=== PATIENT | male | born 1945 | race Caucasian/White ===

== ENCOUNTER → 2020-03-02 10:28 | Outpatient (CLI) | payer MEDICARE, OTHER, SELFPAY | PROVIDERS: PCP Student in an Organized Health Care Education/Training Program; Referring Provider Student in an Organized Health Care Education/Training Program; Visit Provider Family Medicine | DX: L02.415 Cutaneous abscess of right lower limb (principal); L03.115 Cellulitis of right lower limb; L40.50 Arthropathic psoriasis, unspecified | CPT/HCPCS: 99203; 99213 ==

== ENCOUNTER 2020-03-02 14:32 | Inpatient (IN) | payer MEDICARE, OTHER, SELFPAY ==
[2020-03-02 14:56] VITALS: BP 179/101; PULSE 84; RESP 16; O2SAT 97
[2020-03-02 15:11] VITALS: BMI 36.6
[2020-03-02 15:58] LABS: COVID19 -Nasal RAPID Negative (Negative)
--- NOTE | 2020-03-02 16:09 | PM.HP.1 ---
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 Some years ago he had a right knee replacement moved chew resulted in chronic swelling in his right leg. He underwent a cardiac workup that was negative for cause. He was advised to wear compression hose. He subsequently has developed 2 infections which were MRSA in the region. He has now developed a 3rd this when coming up recently. It became red tender and draining. He was seen in the wound clinic and referred to me for surgical treatment of the infection. No cultures have been done to his knowledge. It has become increasingly red and increasingly tender with time. Even touching it now is quite painful. The patient says that the wound care doctor had sprayed with lidocaine and probe the wound which was quite tender for him. Patient History Medical History (Updated 03/02/20 @ 16:28 by Finn Royal MD) History of benign schwannoma (Acute) MRSA infection greater than 3 months ago (Acute) Nerve root injury (Acute) Surgical History (Updated 03/02/20 @ 16:30 by Finn Royal MD) H/O Spinal surgery (Acute) Status post right knee replacement (Acute) Family & Social History Family History Father No problems noted. Social History: household members spouse Prior Living Arrangements House Safety & Behavioral: Feels Safe in Current Yes Environment Been Physically Hurt or No Threatened By a Person Suicidal Ideation Description None Suicide Plan Description No Plan Tobacco & Substance use: Smoking Status Never smoker alcohol intake current alcohol intake frequency 0-2 drinks per day Substance Use Type does not use Meds Home Medications and Allergies Home Medications Medication Instructions Recorded Confirmed Type atorvastatin 20 mg tablet 20 mg PO DAILY 03/02/20 03/02/20 History gabapentin 300 mg capsule 300 mg PO BEDTIME 03/02/20 03/02/20 History losartan 25 mg tablet 25 mg PO DAILY 03/02/20 03/02/20 History mupirocin 2 % topical ointment 1 applictn TOP BID 03/02/20 03/02/20 History naproxen sodium 220 mg capsule 220 mg PO BID PRN 03/02/20 03/02/20 History omega-3 fatty acids 1,000 mg 1,000 mg PO DAILY 03/02/20 03/02/20 History capsule Allergies Allergy/AdvReac Type Severity Reaction Status Date / Time No Known Drug Allergies Allergy Unverified 03/02/20 14:16 Review of Systems Review of Systems Narrative: Denies fever chills night sweats. No weight loss. No itching lesions on the skin. The only open new sore is the 1 with the present infection. No headaches double vision pain is eyes earache sore throats or trouble swallowing. No cough cold or asthma. No chest pain or prior heart attacks. Does have hypertension controlled with medication. Denies any diarrhea constipation black or bloody bowel movements. Has had a screening colonoscopy. No burning when he urinates blood in his urine or kidney stones in the past. He does have some chronic joint pain in his knees and neck. 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 Has numbness in his left hand as well from the same problem. No seizures or blackouts. No anxiety or depression. No problems with this thyroid pancreas he is aware of. No unusual bruising or bleeding. Pain in his right leg is 7/10 at the time he was seen. Last p.o. intake was at noon. Exam Vital Signs (past 8 hours): - 03/02/20 14:56 Pulse Rate 84 Respiratory Rate 16 Blood Pressure 179/101 H Pulse Oximetry 97 Oxygen Flow Rate 0 Narrative Exam Narrative: Patient has a large bony bump right posterior scalp that he states has been present since he was an . Nontender. He has a vertical scar all over his lying his cervical spine in the midline. Head he shaves his head. His eyes are nonicteric. Pupils equal round reactive to light. Conjunctiva pink. Oral mucosa pink moist without open lesions. Teeth are intact. Nasal septum is midline. No polyps seen. His ears are without lesion. There are no palpable nodes or masses in the neck or supraclavicular areas. Trachea is midline mobile. Thyroid is not enlarged. Lungs are clear to auscultation without rales or rhonchi in equal percussion. Heart regular rate and rhythm he has a soft 1 to 2/6 systolic murmur heard best at the base without radiation into the neck. No bruit in the neck. No heave lift or thrill. His abdomen is protuberant soft nontender there are no palpable masses. No hernias of the abdominal wall are noted. Patient is legs are asymmetric. The right ankle is chronically swollen misshapen. There is darkening of the tissues and a hollowed out area where prior infection has been right distal leg medially. Posteriorly there is extensive cellulitis and a centrally necrosed draining site in the middle of that cellulitis. The area is quite tender to touch. Patient has pulses are 2+ dorsalis pedis and tibialis posterior. Other than the changes in the lower right extremity patient has a scar over his right knee from a knee replacement. I do not see any deformity otherwise in either leg. His left hand is misshapen with some loss of muscle mass and contracture mild. Left hand is normal. The patient is alert and oriented x3. Speech rate and content are appropriate. Affect is appropriate. Objective Labs Labs: Laboratory Results - last 24 hr 03/02/20 14:30 COVID-19 PCR Negative Assessment & Plan Assessment & Plan narrative: Chronic hypertension. Will continue to give meds. 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 Will continue the use of gabapentin Elevated cholesterol will continue the use of atovastin. Right leg cellulitis with abscess most likely MRSA given its appearance. Will isolate the patient until cultures are back. Cultures have been ordered. Will begin vancomycin as well as Ancef to cover broad-spectrum of skin julissa. Will require operative debridement. There are several emergencies already on the books. The patient ate lunch at noon. The earliest this can probably be done is around 8:00 p.m.. Will leave that to did the discretion of the stock and station agent physician. Quality VTE Deep Vein Thrombosis/Pulmonary Embolism Present on Admission: No
--- NOTE | 2020-03-02 16:09 | PC.NURSE ---
Pt admit assessment completed. Per dayshift coordinator instruction, this signwriter took wound culture of wound to right posterior calf and sent this to lab. Pt in isolation pending covid test and pt reports h/o wound MRSA. Gown and gloves worn for all care by this signwriter. Pt denies pain to right leg wound with rest; states increases with activity. Pt requests iv be started to left hand/wrist/forearm. Pt does admit to neuopathy to left hand, but states has had iv's in this extremity previously and expresses desire to have iv in this extremity at this time. Pt states wants full availabilty and movement of right UE as is right handed. 20 gauge heplock inserted to left wrist with c/o moderate pain with insertion by pt. States resolved after procedure completed. Able to flush iv without difficulty with normal saline. Pt's spouse present and states will take pt's valuables home. Pt has cell phone and jewelry in possession.
[2020-03-02] MEDS: LACTATED RINGERS 1,000 ML 125 ML IV (16:21)
[2020-03-02 16:39] LABS: Add Manual Diff / Slide Review NO; Basophils Absolute Auto 100 /uL (0-100); Basophils Percent Auto 2.4 % (0-2); Eosinophils Absolute Auto 400 /uL (0-450); Eosinophils Percent Auto 7.4 % (2-4); Hematocrit 39.7 % (41-53); Hemoglobin 13.5 g/dL (13.5-17.5); Lymphocytes Absolute Auto 1300 /uL (1100-4500); Lymphocytes Percent Auto 24.2 % (25-40); Mean Corpuscular HGB Conc 34.1 % (30-36); Mean Corpuscular Hemoglobin 30.4 PG (26-34); Mean Corpuscular Volume 89.3 fL (80-100); Monocytes Absolute Auto 400 /uL (0-900); Monocytes Percent Auto 7.4 % (3-14); Neutrophils Absolute Auto 3200 /uL (1500-7000); Neutrophils Percent Auto 58.6 % (50-75); Platelet Count 230 X10^3/uL (150-400); Red Blood Cell Count 4.45 X10^6/uL (4.5-5.9); Red Cell Distribution Width 13.6 % (11.6-14.8); White Blood Cell Count 5.6 X10^3/uL (4.5-11.0)
[2020-03-02 16:40] LABS: Alanine Aminotransferase 37 IU/L (<50); Albumin Globulin Ratio 1.2 (1.0-2.8); Alkaline Phosphatase 83 U/L (38-126); Aspartate Aminotransferase 33 IU/L (17-59); BUN Creatinine Ratio 20.2 (6-22); Bilirubin Total 0.5 mg/dL (0.2-1.3); Blood Urea Nitrogen 20 mg/dL (9-20); Calcium 8.8 mg/dL (8.4-10.2); Carbon Dioxide 29 mmol/L (22-32); Chloride 105 mmol/L (98-107); Estimated Glomerular Filt Rate > 60.0 mL/min (>60); Globulin 3.4 g/dL (1.7-4.1); Glucose 92 mg/dL (80-110); HEMOLYSIS < 15 (0-50); Magnesium 2.1 mg/dL (1.6-2.3); Sodium 140 mmol/L (137-145); Total Protein 7.4 g/dL (6.3-8.2)
[2020-03-02] MEDS: CEFAZOLIN 2 GM/100 ML FROZ.PIGGY IV (17:07)
[2020-03-02] MEDS: VANCOMYCIN 1,250 MG in SODIUM CHLORIDE 0.9% 250 ML IV (18:23)
[2020-03-02 20:00] VITALS: BP 163/98; PULSE 79; RESP 18; TEMP 37.1
[2020-03-03] VITALS (14 sets, daily range): BP systolic 124–182; BP diastolic 57–105; PULSE 73–95; RESP 10–19; TEMP 36.4–37.1; O2SAT 87–99; BMI 36.6
[2020-03-03] MEDS: CEFAZOLIN 2 GM/100 ML FROZ.PIGGY IV ×2 (00:45→07:50)
[2020-03-03] MEDS: LACTATED RINGERS 1,000 ML 125 ML IV (00:49)
[2020-03-03] MEDS: VANCOMYCIN 1,250 MG in SODIUM CHLORIDE 0.9% 250 ML IV (05:33)
[2020-03-03 06:59] LABS: Add Manual Diff / Slide Review NO; Basophils Absolute Auto 0 /uL (0-100); Basophils Percent Auto 0.6 % (0-2); Eosinophils Absolute Auto 300 /uL (0-450); Eosinophils Percent Auto 5.6 % (2-4); Hematocrit 41.8 % (41-53); Hemoglobin 13.9 g/dL (13.5-17.5); Lymphocytes Absolute Auto 1900 /uL (1100-4500); Mean Corpuscular HGB Conc 33.3 % (30-36); Mean Corpuscular Hemoglobin 29.9 PG (26-34); Mean Corpuscular Volume 89.8 fL (80-100); Monocytes Absolute Auto 500 /uL (0-900); Monocytes Percent Auto 10.4 % (3-14); Neutrophils Absolute Auto 2300 /uL (1500-7000); Neutrophils Percent Auto 45.4 % (50-75); Platelet Count 230 X10^3/uL (150-400); Red Blood Cell Count 4.65 X10^6/uL (4.5-5.9); Red Cell Distribution Width 13.7 % (11.6-14.8); White Blood Cell Count 5.1 X10^3/uL (4.5-11.0)
[2020-03-03 07:08] LABS: BUN Creatinine Ratio 18.8 (6-22); Blood Urea Nitrogen 15 mg/dL (9-20); Calcium 8.8 mg/dL (8.4-10.2); Carbon Dioxide 28 mmol/L (22-32); Chloride 106 mmol/L (98-107); Estimated Glomerular Filt Rate > 60.0 mL/min (>60); Glucose 94 mg/dL (80-110); HEMOLYSIS < 15 (0-50); Lactate (Lactic Acid) 0.9 mmol/L (0.7-2.1); Potassium 4.2 mmol/L (3.4-5.1); Sodium 140 mmol/L (137-145)
--- NOTE | 2020-03-03 07:10 | PC.NURSE ---
Surgery crew came to take pt. to OR Via bed with chart.
--- NOTE | 2020-03-03 07:22 | SUR.OPER ---
Supine on padded OR bed, head on pillow, arms secured on padded arm boards at <90 degrees abduction, legs uncrossed, safety belt at thigh, tape over blanket over lower legs.
[2020-03-03] MEDS: LACTATED RINGERS 1,000 ML 42 ML IV (07:33)
--- NOTE | 2020-03-03 08:11 | SUR.OPER ---
Lateral on padded OR bed, head on pillow, gel axillary roll in place, bottom leg bent with gel pad under knee to foot, upper leg straight and supported with pillows. Upper arm supported by pillows and secured over bottom arm to padded arm board. Safety belt at hip, tape over blanket lower legs.
[2020-03-03] MEDS: BUPIVACAINE 0.25% W/ EPI 30 ML VIAL INJ (08:20)
--- NOTE | 2020-03-03 08:21 | PM.OP.1 ---
Operative Date/Time/Diagnoses Date of procedure: 03/03/20 Time of procedure: 08:21 Pre-op diagnosis: right posterior leg abscess Post-op diagnosis: same (necrotic tissue 2cm x 2cm x 5mm deep; without necrotic fibrinous tissue but no drainable pus) Procedure & Clinicians Procedure: Incision and sharp excisional debridement for right lower leg ulcer 2cm x 2cm x 5mm Same procedure as scheduled: Yes Indications: Recurrent right leg infection Surgeon: Sheridan Caraballo Anesthesia Type: General Operative Notes Findings: 2cm x 2cm x 5mm leg ulcer with necrotic tissue Specimen(s): other (Tissue for culture, fluid for culture) Estimated Blood Loss (mL): 1 Procedure in detail: The patient was brought into the OR, placed supine on the OR table, and appropriate preoperative antibiotics were given. Sequential compression devices were placed on the left leg and turned on. General anesthesia was induced and the patient was intubated with an LMA by the anesthesiologist. The right lower leg was prepped and draped in sterile fashion. Surgical timeout was conducted. Deep wound culture was taken using a culture swab. Local anesthetic was infiltrated into the skin and a 15 blade was used to make a circular incision around the necrotic portion of the wound. The necrotic tissue was excised for 2 cm x 2cm x 5m deep circular wound. This was further debrided with gauze until clean. The wound was irrigated and packed with iodoform gauze, covered with a dry dressing and secured with tape. The patient was awakened from anesthesia and extubated. He tolerated the procedure well. Needle, sponge and instrument counts were correct x 2. The patient was transferred to PACU in stable condition. Complications: none Post-operative Condition: stable Disposition: PACU
--- NOTE | 2020-03-03 09:19 | SUR.PHASEI ---
Pt left in stable condition with TORSTEN Sam
[2020-03-03] MEDS: ATORVASTATIN 20 MG TABLET PO (10:12)
[2020-03-03] MEDS: LOSARTAN 25 MG TABLET PO (10:13)
--- NOTE | 2020-03-03 13:29 | PC.NURSE ---
Pt is dressed and ready for discharge home on the [id number]. Osman Colin to transfer. Went over d/c instructions with Pt - discussed d/c meds, time of last dose, reviewed stroke education, s/s of infection and when to call MD. Gave Pt dressing materials for ordered dressing changes. Pt to follow up with PCP and Wound Care as directed. Pt out via w/c by RN to [facility] with all belongings.
== END 2020-03-03 13:32 | disposition home or self-care (01) | DRG 571 ==
PROVIDERS: Surgery; Admitting Provider Specialist; PCP Student in an Organized Health Care Education/Training Program; Referring Provider Specialist; Visit Provider Specialist
PROC: 0JBN0ZZ Excision of Right Lower Leg Subcutaneous Tissue and Fascia, Open Approach (ICD-10-PCS; principal; 2020-03-03 07:45)
DX: L97.219 Non-pressure chronic ulcer of right calf with unspecified severity (principal); L02.415 Cutaneous abscess of right lower limb; L03.115 Cellulitis of right lower limb; B95.62 Methicillin resistant Staphylococcus aureus infection as the cause of diseases classified elsewhere; Z96.651 Presence of right artificial knee joint; R60.0 Localized edema; I10 Essential (primary) hypertension; M79.2 Neuralgia and neuritis, unspecified
CPT/HCPCS: 11042; 36415; 80048; 80053; 83605; 83735; 85025; 87070; 87075; 87077; 87147; 87176; 87186; 87205; 87635; 99213; J0690; J2250; J2704

== ENCOUNTER → 2020-03-10 09:18 | Outpatient (CLI) | payer MEDICARE, OTHER, SELFPAY ==
[2020-03-02 15:11] VITALS: BMI 36.6
== END ==
PROVIDERS: PCP Student in an Organized Health Care Education/Training Program; Referring Provider Student in an Organized Health Care Education/Training Program; Visit Provider Family Medicine
DX: I87.2 Venous insufficiency (chronic) (peripheral) (principal); L97.811 Non-pressure chronic ulcer of other part of right lower leg limited to breakdown of skin; B95.61 Methicillin susceptible Staphylococcus aureus infection as the cause of diseases classified elsewhere; L03.115 Cellulitis of right lower limb; L40.50 Arthropathic psoriasis, unspecified; Z86.14 Personal history of Methicillin resistant Staphylococcus aureus infection
CPT/HCPCS: 97597; 99214

== ENCOUNTER → 2020-03-17 09:51 | Outpatient (CLI) | payer MEDICARE, OTHER, SELFPAY ==
[2020-03-02 15:11] VITALS: BMI 36.6
== END ==
PROVIDERS: PCP Student in an Organized Health Care Education/Training Program; Referring Provider Student in an Organized Health Care Education/Training Program; Visit Provider Family Medicine
DX: I87.2 Venous insufficiency (chronic) (peripheral) (principal); L97.811 Non-pressure chronic ulcer of other part of right lower leg limited to breakdown of skin; L40.50 Arthropathic psoriasis, unspecified
CPT/HCPCS: 11042

== ENCOUNTER → 2020-03-23 09:23 | Outpatient (CLI) | payer MEDICARE, OTHER, SELFPAY ==
[2020-03-02 15:11] VITALS: BMI 36.6
== END ==
PROVIDERS: PCP Student in an Organized Health Care Education/Training Program; Referring Provider Student in an Organized Health Care Education/Training Program; Visit Provider Family Medicine
DX: I87.2 Venous insufficiency (chronic) (peripheral) (principal); L97.811 Non-pressure chronic ulcer of other part of right lower leg limited to breakdown of skin; L97.211 Non-pressure chronic ulcer of right calf limited to breakdown of skin; L40.50 Arthropathic psoriasis, unspecified
CPT/HCPCS: 11042; 93922

== ENCOUNTER → 2020-03-25 09:49 | Outpatient (CLI) | payer MEDICARE, OTHER, SELFPAY ==
[2020-03-02 15:11] VITALS: BMI 36.6
== END ==
PROVIDERS: PCP Student in an Organized Health Care Education/Training Program; Referring Provider Student in an Organized Health Care Education/Training Program; Visit Provider Family Medicine
DX: T81.31XA Disruption of external operation (surgical) wound, not elsewhere classified, initial encounter (principal); S81.801A Unspecified open wound, right lower leg, initial encounter
CPT/HCPCS: 29581

== ENCOUNTER → 2020-03-31 08:48 | Outpatient (CLI) | payer MEDICARE, OTHER, SELFPAY ==
[2020-03-02 15:11] VITALS: BMI 36.6
== END ==
PROVIDERS: PCP Student in an Organized Health Care Education/Training Program; Referring Provider Student in an Organized Health Care Education/Training Program; Visit Provider Family Medicine
DX: T81.31XA Disruption of external operation (surgical) wound, not elsewhere classified, initial encounter (principal); S81.801A Unspecified open wound, right lower leg, initial encounter
CPT/HCPCS: 29580

== ENCOUNTER → 2020-04-07 09:31 | Outpatient (CLI) | payer MEDICARE, OTHER, SELFPAY | PROVIDERS: PCP Student in an Organized Health Care Education/Training Program; Referring Provider Student in an Organized Health Care Education/Training Program; Visit Provider Family Medicine | DX: I87.2 Venous insufficiency (chronic) (peripheral) (principal); L97.811 Non-pressure chronic ulcer of other part of right lower leg limited to breakdown of skin; L40.50 Arthropathic psoriasis, unspecified | CPT/HCPCS: 11042 ==

== ENCOUNTER → 2020-04-21 09:34 | Outpatient (CLI) | payer MEDICARE, OTHER, SELFPAY | PROVIDERS: PCP Student in an Organized Health Care Education/Training Program; Referring Provider Student in an Organized Health Care Education/Training Program; Visit Provider Family Medicine | DX: I87.2 Venous insufficiency (chronic) (peripheral) (principal); L97.811 Non-pressure chronic ulcer of other part of right lower leg limited to breakdown of skin; L40.50 Arthropathic psoriasis, unspecified | CPT/HCPCS: 29581; 99213 ==

== ENCOUNTER → 2020-04-28 10:42 | Outpatient (CLI) | payer MEDICARE, OTHER, SELFPAY | PROVIDERS: PCP Student in an Organized Health Care Education/Training Program; Referring Provider Student in an Organized Health Care Education/Training Program; Visit Provider Family Medicine | DX: I87.2 Venous insufficiency (chronic) (peripheral) (principal); L97.811 Non-pressure chronic ulcer of other part of right lower leg limited to breakdown of skin; L40.50 Arthropathic psoriasis, unspecified | CPT/HCPCS: 29581; 99213 ==

== ENCOUNTER → 2020-05-05 09:11 | Outpatient (CLI) | payer MEDICARE, OTHER, SELFPAY | PROVIDERS: PCP Student in an Organized Health Care Education/Training Program; Referring Provider Student in an Organized Health Care Education/Training Program; Visit Provider Family Medicine | DX: I87.2 Venous insufficiency (chronic) (peripheral) (principal); R60.0 Localized edema; Z22.321 Carrier or suspected carrier of Methicillin susceptible Staphylococcus aureus | CPT/HCPCS: 99213 ==

== ENCOUNTER → 2022-07-11 09:59 | Outpatient (CLI) | payer MEDICARE, OTHER, SELFPAY ==
[2022-07-11 11:13] LABS: COVID19 -Nasal RAPID Negative (Negative)
--- NOTE | 2022-07-12 14:36 | PM.TREADMILL ---
Cardiac Stress Test Report Referral & Results Date Patient Seen: 07/12/22 Requesting provider: Ignacio Dominguez Indication: Non ST-elevation CA Rest ECG: Unremarkable Procedure Note: After both written and verbal informed consent the patient had an IV started by the diagnostic imaging RN, and then was hooked up to the treadmill monitoring system. The Lexiscan material, and then the Cardiolite tracer, were administered sequentially. An additional 3 min was spent monitoring the patient while supine on the gurney. The patient had a normal response to all infused materials. Impression: Please see perfusion imaging report for details regarding possible ischemia Please note: Actual ECG tracings can be found in the PACS system.
--- NOTE | 2022-07-13 19:46 | DI.NM.S_ITS ---
DATE OF SERVICE: 07/11/2022 PROCEDURE PERFORMED: Pharmacologic stress and rest myocardial perfusion imaging study with gating to assess ejection fraction and regional wall motion. ORDERING PROVIDER: Dr. Ignacio Dominguez. INDICATIONS: The patient is a 76-year-old male with a recent hospitalization for a sepsis-like syndrome with an elevated troponin, following a prostate biopsy. CARDIAC STRESS: Per protocol, 0.4 mg of regadenoson was infused at with a normal hemodynamic response. He had no chest discomfort. His resting ECG shows sinus rhythm with normal ST segments and there are no significant ST-segment shifts or arrhythmias with stress. Per protocol, 24.9 millicuries of technetium-99m Myoview was injected. He was imaged 20 minutes later using a gated SPECT acquisition protocol. The day prior, he had been injected with 26.4 millicurie of technetium-99m Myoview and was imaged 20 minutes later, again using a gated SPECT acquisition protocol. FINDINGS: 1. Raw data: There is fairly good myocardial tracer uptake. Lung/heart ratio is normal at 0.31 with a normal TID ratio of 1.02. 2. Quantitated gated SPECT: Post-stress ejection fraction is estimated at 78% without any focal wall motion abnormality and specifically the inferior wall has brisk contractility. The resting ejection fraction is 75% with a normal resting end-diastolic volume of 97 mL. 3. Myocardial perfusion imaging: Post-stress supine images show a fairly normal myocardial perfusion pattern with mildly reduced tracer activity at the base of the inferior wall which completely resolves on the prone images, consistent with diaphragmatic attenuation. There are no other perfusion defects. The resting images show an identical perfusion pattern without any clear areas of improvement. IMPRESSION: 1. Normal myocardial perfusion study. 2. Mild, fixed proximal inferior perfusion defect that resolves on prone imaging, consistent with diaphragmatic attenuation artifact. There is no compelling evidence for any myocardial ischemia or previous myocardial infarction. 3. Normal left ventricular systolic function without any focal wall motion abnormality and normal left ventricular volumes. 4. No angina or ECG evidence of ischemia with pharmacologic vasodilator stress. Amadou Jane - MANUEL/lynsey/new doc#: [id number]/job#: [id number] dd: 07/13/2022 13:13:00 dt: 07/13/2022 19:17:00 DICTATING MD/COPIES TO: Arden Durán MD COPIES MNE: [place];
== END ==
PROVIDERS: PCP Student in an Organized Health Care Education/Training Program; Referring Provider Student in an Organized Health Care Education/Training Program; Visit Provider Student in an Organized Health Care Education/Training Program
DX: I21.4 Non-ST elevation (NSTEMI) myocardial infarction (principal); R77.8 Other specified abnormalities of plasma proteins; Z20.822 Contact with and (suspected) exposure to COVID-19
CPT/HCPCS: 78452; 87635; 93016; 93017; 93018; A9502; J2785